=== PATIENT | female | born 1990 | race Caucasian/White ===

== ENCOUNTER 2019-06-25 12:07 | Emergency (ER) | payer SELFPAY ==
[2019-06-25 12:29] VITALS: BP 134/68; PULSE 76; RESP 17; TEMP 37; O2SAT 97; BMI 30.2
--- NOTE | 2019-06-25 12:43 | W.ED.GENADLT ---
HPI - General Adult General: Chief complaint: Syncope Stated complaint: hit head Time Seen by Provider: 06/25/19 12:37 History of Present Illness: HPI narrative: Patient complains of having episode after she peed today and stood up that she had a syncopal episode said she hit her head on the wall. Patient now states that her throat hurts that she is been sick for a few days had some throwing up and is been coughing a lot no vomiting the last 24 to 48 hours. Possibly has some chills no nausea or vomiting after fall today MD complaint: sore throat and cough Onset (ago): day(s) Location: head Radiation: non-radiation Severity: mild Associated symptoms: Reports headache(s); Deny chest pain, dyspnea, nausea, rash or vomiting Review of Systems Const: Reports: chills; Denies: fever or body aches Eyes: Denies: change in vision or blurry vision ENMT: Reports: throat pain; Denies: nasal congestion Card: Denies: chest pain or shortness of breath on exertion Resp: Reports: productive cough; Denies: shortness of breath or non-productive cough GI: Denies: abdominal pain, nausea or vomiting Musc: Denies: extremity pain Skin/Breast: Denies: rash Neuro: Reports: headache Psych: Denies: anxiety or depression Osbaldo/Lymph: Denies: easy bruising PFS ED PFSH: Medical History (Updated 06/25/19 @ 14:17 by BIRD Nicholson) Major depressive disorder, recurrent severe without psychotic features Post-traumatic stress disorder, chronic Social History (Updated 05/14/19 @ 10:46 by Nancie Abreu LPN) Smoking and tobacco status: current every day smoker cigarettes Years cigarettes smoked: 3 Physical Exam Const: COMMON NORMALS: no apparent distress, average body habitus and oriented x3 HENMT: COMMON NORMALS: normocephalic HEAD & SCALP: normal to inspection and normocephalic FACE & SINUS: normal facial exam THROAT: posterior oropharynx abnormal (Very red with some exudate) erythema and exudates Eye: COMMON NORMALS: conjunctivae normal GENERAL EYE: normal appearance of both eyes CONJUNCTIVA: Yes conjunctivae normal Neck/C-Spine: COMMON NORMALS: no JVD Chest: COMMONS NORMALS: inspection of chest normal Resp: COMMON NORMALS: normal respiratory effort and clear to auscultation bilaterally AUSCULTATION: clear to auscultation bilaterally Cardio: COMMON NORMALS: no JVD, regular rate and regular rhythm RATE: regular rate RHYTHM: regular rhythm GI: COMMON NORMALS: normal to inspection, nondistended, normoactive bowel sounds Extremity: COMMON NORMALS: normal to inspection and full ROM Neuro: COMMON NORMALS: oriented x3 and CN's II-XII intact bilaterally Course Vital Signs: Vital signs: Vital Signs Temperature 98.6 F 06/25/19 12:29 Pulse Rate 65 06/25/19 13:35 Respiratory Rate 17 06/25/19 12:29 Blood Pressure 107/60 06/25/19 13:35 Pulse Oximetry 97 06/25/19 12:29 MDM - General Adult MDM Narrative: Medical decision making narrative: Discussed case with Dr. Gipson Lab Data: Labs: Lab Results 06/25/19 06/25/19 06/25/19 Range/Units 12:51 12:51 13:01 WBC 4.3 (4.0-10.0) 10^3/ uL RBC 4.71 (4.1-5.3) 10^6/u L Hgb 14.5 (11.5-15.3) g/dL Hct 43.3 (37.0-47.0) % MCV 91.9 (81-99) fL MCH 30.8 (28.0-34.0) pg MCHC 33.5 (30.0-36.0) g/dL RDW 11.4 L (12.1-15.1) % Plt Count 173 (130-400) 10^3/c mm MPV 10.8 H (7.4-10.4) fL Neut % (Auto) 53.4 % Lymph % (Auto) 32.3 % [place] % (Auto) 13.7 % Eos % (Auto) 0.2 % Baso % (Auto) 0.2 % Neut # (Auto) 2.3 (1.8-7.7) 10^3/u L Lymph # (Auto) 1.4 (0.8-4.8) 10^3/u L [place] # (Auto) 0.6 (0.2-0.9) 10^3/u L Eos # (Auto) 0.0 (0.0-0.8) 10^3/u L Baso # (Auto) 0.0 (0.0-0.1) 10^3/u L Nucleated RBC % (a uto) 0 % Nucleated RBCs # 0.0 /100WBC Sodium 138 (136-145) mmol/L Potassium 4.1 (3.5-5.1) mmol/L Chloride 103 (98-107) mmol/L Carbon Dioxide 24 (22-29) mmol/L Anion Gap 15.1 (5-19) BUN 7 (6-20) mg/dL Creatinine 0.9 (0.5-0.9) mg/dL GFR Calculation 74.6 L (90-130) mL/min Glucose 97 (65-115) mg/dL Calcium 9.1 (8.5-10.5) mg/dL Total Bilirubin 0.2 (0.15-1.2) mg/dL AST 23 (0-32) U/L ALT 17 (0-33) U/L Alkaline Phosphata se 96 (35-105) IU/L Total Protein 7.5 (6.6-8.7) g/dL Albumin 4.1 (3.5-5.2) g/dL Globulin 3.4 (1.3-4.6) g/dL Urine Color Yellow (Yellow) Urine Appearance Clear (CLEAR) Urine pH 5 (5-7) Ur Specific Gravit y 1.010 (1.005-1.030) Urine Protein Neg (Negative) Urine Glucose (UA) Norm (Normal) Urine Ketones Negative (Negative) Urine Blood 3+ H (Negative) Urine Nitrate Negative (Negative) Urine Bilirubin Neg (NEGATIVE) Urine Urobilinogen Norm (Negative) mg/dL Ur Leukocyte Crissy ase Negative (Negative) Urine RBC 0-4 H (0-2) /hpf Urine WBC 0-4 H (0-5) /hpf Ur Squamous Epith Cells 5-10 H (0-5) Urine Bacteria 1+ H (NONE) Urine Mucus Trace Influenza Type A A g (Negative) POC Influenza B Ag (Negative) Group A Strep Rapi d (Negative) 06/25/19 06/25/19 Range/Units 13:32 13:42 WBC (4.0-10.0) 10^3/ uL RBC (4.1-5.3) 10^6/u L Hgb (11.5-15.3) g/dL Hct (37.0-47.0) % MCV (81-99) fL MCH (28.0-34.0) pg MCHC (30.0-36.0) g/dL RDW (12.1-15.1) % Plt Count (130-400) 10^3/c mm MPV (7.4-10.4) fL Neut % (Auto) % Lymph % (Auto) % [place] % (Auto) % Eos % (Auto) % Baso % (Auto) % Neut # (Auto) (1.8-7.7) 10^3/u L Lymph # (Auto) (0.8-4.8) 10^3/u L [place] # (Auto) (0.2-0.9) 10^3/u L Eos # (Auto) (0.0-0.8) 10^3/u L Baso # (Auto) (0.0-0.1) 10^3/u L Nucleated RBC % (a uto) % Nucleated RBCs # /100WBC Sodium (136-145) mmol/L Potassium (3.5-5.1) mmol/L Chloride (98-107) mmol/L Carbon Dioxide (22-29) mmol/L Anion Gap (5-19) BUN (6-20) mg/dL Creatinine (0.5-0.9) mg/dL GFR Calculation (90-130) mL/min Glucose (65-115) mg/dL Calcium (8.5-10.5) mg/dL Total Bilirubin (0.15-1.2) mg/dL AST (0-32) U/L ALT (0-33) U/L Alkaline Phosphata se (35-105) IU/L Total Protein (6.6-8.7) g/dL Albumin (3.5-5.2) g/dL Globulin (1.3-4.6) g/dL Urine Color (Yellow) Urine Appearance (CLEAR) Urine pH (5-7) Ur Specific Gravit y (1.005-1.030) Urine Protein (Negative) Urine Glucose (UA) (Normal) Urine Ketones (Negative) Urine Blood (Negative) Urine Nitrate (Negative) Urine Bilirubin (NEGATIVE) Urine Urobilinogen (Negative) mg/dL Ur Leukocyte Crissy ase (Negative) Urine RBC (0-2) /hpf Urine WBC (0-5) /hpf Ur Squamous Epith Cells (0-5) Urine Bacteria (NONE) Urine Mucus Influenza Type A A g Negative (Negative) POC Influenza B Ag Positive H (Negative) Group A Strep Rapi d Negative (Negative) EKG Data^: EKG 1: EKG interpretation date: 06/25/19 EKG interpretation time: 13:44 Interpretation: NSR, rate 67 bpm, QRS 374 Discharge Plan Discharge Patient Disposition: Home, Self-Care Clinical Impression: Dehydration, Influenza Condition: Stable Prescriptions: New Tamiflu 75 mg capsule 75 mg PO BID 5 Days Qty: 10 RF: 0 No Action fluoxetine [Prozac] 20 mg capsule 60 mg PO DAILY Qty: 90 RF: 1 aripiprazole [Abilify] 15 mg tablet 15 mg PO DAILY Qty: 30 RF: 1 prazosin [Minipress] 2 mg capsule 2 mg PO BEDTIME RF: 0 Referrals: Adrian Rosales MD [Primary Care Provider] - Discharge Diet: Advance as tolerated Discharge Activity: Increase activity as tolerated Patient Instructions: Dehydration (ED), Influenza (ED) Activity Restrictions/Additional Instructions: Follow-up with medical provider as directed. Take medications as prescribed. Return to the ER or your medical provider if condition worsens. Please read and understand discharge instructions. If any questions ask please. Coding Level of Care Code ED Donation Specialist for Erickg Fwd Exam Comprehensive
[2019-06-25 13:00] LABS: Basophils % 0.2 %; Eosinophils % 0.2 %; Hematocrit 43.3 % (37.0-47.0); Hemoglobin 14.5 g/dL (11.5-15.3); Lymphocytes # 1.4 10^3/uL (0.8-4.8); Lymphocytes % 32.3 %; Mean Corpuscular HGB Conc 33.5 g/dL (30.0-36.0); Mean Corpuscular Hemoglobin 30.8 pg (28.0-34.0); Mean Corpuscular Volume 91.9 fL (81-99); Mean Platelet Volume 10.8 fL (7.4-10.4); Monocytes # 0.6 10^3/uL (0.2-0.9); Monocytes % 13.7 %; Neutrophils # 2.3 10^3/uL (1.8-7.7); Neutrophils % 53.4 %; Nucleated Red Blood Cells % 0 %; Platelet Count 173 10^3/cmm (130-400); Positive M 1; Red Blood Count 4.71 10^6/uL (4.1-5.3); Red Cell Distribution Width 11.4 % (12.1-15.1); White Blood Count 4.3 10^3/uL (4.0-10.0)
[2019-06-25 13:11] LABS: Add Urine Microscopic? YES; Bilirubin Urine Neg (NEGATIVE); Blood Urine 3+ (Negative); Glucose Urine UA Norm (Normal); Ketones Urine Negative (Negative); Leukocyte Esterase Urine Negative (Negative); Nitrate Urine Negative (Negative); Protein Urine Neg (Negative); Urine Appearance Clear (CLEAR); Urine Color Yellow (Yellow); Urobilinogen Urine Norm (Negative); pH Urine 5 (5-7)
[2019-06-25 13:15] LABS: Alanine Aminotransferase 17 U/L (0-33); Albumin Level 4.1 g/dL (3.5-5.2); Alkaline Phosphatase 96 IU/L (35-105); Anion Gap 15.1 (5-19); Aspartate Amino Transferase 23 U/L (0-32); Blood Urea Nitrogen 7 mg/dL (6-20); Calcium 9.1 mg/dL (8.5-10.5); Carbon Dioxide 24 mmol/L (22-29); Chloride 103 mmol/L (98-107); Globulin 3.4 g/dL (1.3-4.6); Glomerular Filtration Rate 74.6 mL/min (90-130); Glucose 97 mg/dL (65-115); Potassium 4.1 mmol/L (3.5-5.1); Sodium 138 mmol/L (136-145); Total Bilirubin 0.2 mg/dL (0.15-1.2); Total Protein 7.5 g/dL (6.6-8.7)
--- NOTE | 2019-06-25 13:24 | ECG_ITS ---
Measurements Intervals [place] Rate: 67 P: 41 NV: 140 QRS: 64 QRSD: 82 T: 54 QT: 374 QTc: 395 SINUS RHYTHM Compared to ECG 02/21/2015 13:55:21 Sinus arrhythmia no longer present T-wave abnormality no longer present Electronically Signed On 06-25-2019 14:13:47 TORQUE TESTER by Paul Ortega M.D. [id number]
[2019-06-25 13:32] LABS: Slide Review Slide Review Perform
[2019-06-25 13:35] VITALS: BP 107/60; BP 108/65; BP 115/70; PULSE 65; PULSE 71; PULSE 92
[2019-06-25 13:40] LABS: Add Urine Culture? No; Bacteria Urine 1+; Mucus Urine TRACE; RBC Urine 0-4 /hpf (0-2); WBC Urine 0-4 /hpf (0-5)
[2019-06-25] MEDS: sodium chloride 0.9% 1,000 ML 999 ML IV (13:41)
[2019-06-25 13:56] LABS: Rapid Strep A Test Negative (Negative)
[2019-06-25 14:09] LABS: Influenza A by IFA Negative (Negative); Influenza B by IFA Positive (Negative)
[2019-06-25 14:23] VITALS: BP 118/64; PULSE 72; RESP 17; O2SAT 98
== END 2019-06-25 14:27 | disposition home or self-care (01) ==
PROVIDERS: Emergency Provider Nurse Practitioner Family; Family Provider Family Medicine; PCP Family Medicine
DX: J11.1 Influenza due to unidentified influenza virus with other respiratory manifestations (principal); E86.0 Dehydration; F17.210 Nicotine dependence, cigarettes, uncomplicated
CPT/HCPCS: 36415; 80053; 81001; 85025; 87081; 87804; 87880; 93005; 96360; 99283; A9270; J7030

== ENCOUNTER 2020-04-10 15:49 | Emergency (ER) | payer SELFPAY ==
[2020-04-10 15:55] VITALS: BP 113/77; PULSE 67; RESP 18; TEMP 36.4; O2SAT 98; BMI 30.1
--- NOTE | 2020-04-10 16:06 | XR_ITS ---
WS: [id number] PORTABLE CHEST HISTORY: CP COMPARISON: 01/22/2013 Lungs are clear and well expanded. No pleural effusion or pneumothorax. Cardiac size: Normal. Mediastinum/Aorta: Normal mediastinum. No osseous abnormality seen. XR/XR chest 1V portable [id number] IMPRESSION: Unremarkable portable chest.
--- NOTE | 2020-04-10 16:10 | W.ED.ANXIETY ---
Documented by User: BIRD Simpson 04/10/20 16:11 HPI - Anxiety General: Chief Complaint: Anxiety Stated Complaint: Chest Pain Time Seen by Provider: 04/10/20 16:01 History of Present Illness: HPI narrative: Patient said she started with chest pain after anxiety attack she smokes some THC and that did not relieve her anxiety pain still in her chest radiates up into her neck and she also said her oxygen level was low at 88% which was checked by her who is an EMT. Patient has has a history of anxiety and anxiety attacks medications all help her. MD complaint: anxiety and other Onset (ago): hour(s) Symptoms: chest pain Severity: mild Quality: constant Place: home History of similar episodes: Yes Provoking factors: none known Relieving factors: nothing Exacerbating factors: nothing Associated symptoms: Reports no associated symptoms and chest pain; Deny chills, fever(s), headache(s), nausea or vomiting Review of Systems Const: Denies: fever(s), chills or body aches Eyes: Denies: change in vision or blurry vision ENMT: Denies: throat pain or nasal congestion Card: Reports: chest pain; Denies: dyspnea on exertion Resp: Denies: dyspnea, productive cough or non-productive cough GI: Denies: abdominal pain, nausea or vomiting Musc: Denies: extremity pain Skin/Breast: Denies: rash Neuro: Denies: headache(s) Psych: Reports: anxiety; Denies: depression Osbaldo/Lymph: Denies: easy bruising PFSH ED PFSH: Medical History Major depressive disorder, recurrent severe without psychotic features Post-traumatic stress disorder, chronic Social History Smoking and tobacco status: current every day smoker cigarettes Years cigarettes smoked: 3 Physical Exam Const: COMMON NORMALS: no acute distress, average body habitus and patient oriented x3 HENMT: COMMON NORMALS: normocephalic HEAD & SCALP: normal to inspection and normocephalic FACE & SINUS: normal facial exam Eye: COMMON NORMALS: conjunctivae normal GENERAL EYE: appearance normal, both eyes and all related structures CONJUNCTIVA: Yes conjunctivae normal Neck/C-Spine: COMMON NORMALS: no JVD Chest: COMMONS NORMALS: normal inspection of the chest Resp: COMMON NORMALS: normal respiratory effort and clear to auscultation bilaterally AUSCULTATION: clear to auscultation bilaterally Cardio: COMMON NORMALS: no JVD, regular rate and regular rhythm RATE: regular rate RHYTHM: regular rhythm GI: COMMON NORMALS: Normal to inspection, nondistended, normoactive bowel sounds present Extremity: COMMON NORMALS: normal to inspection and full ROM Neuro: COMMON NORMALS: patient oriented x3 Course Vital Signs: Vital signs: Vital Signs Temperature 97.5 F L 04/10/20 15:55 Pulse Rate 74 04/10/20 20:06 Respiratory Rate 16 04/10/20 20:06 Blood Pressure 110/66 04/10/20 20:06 Pulse Oximetry 96 04/10/20 20:06 MDM - Anxiety EKG Data^: EKG 1: Interpretation: Chest X-Ray 04/10/20 16:06 IMPRESSION: Unremarkable portable chest. Other EKG comments: Chest X-Ray 04/10/20 16:06 IMPRESSION: Unremarkable portable chest. Lab Data: Labs: Lab Results 04/10/20 04/10/20 04/10/20 Range/Units 17:15 17:15 17:15 WBC 13.4 H (4.0-10.0) 10^3/ uL RBC 4.52 (4.1-5.3) 10^6/u L Hgb 14.4 (11.5-15.3) g/dL Hct 43.0 (37.0-47.0) % MCV 95.1 (81-99) fL MCH 31.9 (28.0-34.0) pg MCHC 33.5 (30.0-36.0) g/dL RDW 11.5 L (12.1-15.1) % Plt Count 226 (130-400) 10^3/c mm MPV 11.9 H (7.4-10.4) fL Neut % (Auto) 56.9 % Lymph % (Auto) 32.3 % [place] % (Auto) 7.7 % Eos % (Auto) 2.4 % Baso % (Auto) 0.3 % Neut # (Auto) 7.64 (1.8-7.7) 10^3/u L Lymph # (Auto) 4.3 (0.8-4.8) 10^3/u L [place] # (Auto) 1.0 H (0.2-0.9) 10^3/u L Eos # (Auto) 0.3 (0.0-0.8) 10^3/u L Baso # (Auto) 0.0 (0.0-0.1) 10^3/u L Nucleated RBC % (a uto) 0 % Nucleated RBCs # 0.0 /100WBC Sodium 141 (136-145) mmol/L Potassium 4.1 (3.5-5.1) mmol/L Chloride 105 (98-107) mmol/L Carbon Dioxide 25 (22-29) mmol/L Anion Gap 15.1 (5-19) BUN 8 (6-20) mg/dL Creatinine 0.7 (0.5-0.9) mg/dL GFR Calculation 98.9 (90-130) mL/min Glucose 89 (65-115) mg/dL Calculated Osmolal ity 290 (285-295) mOsm/k g Calcium 9.4 (8.5-10.5) mg/dL Troponin T Gen 5 n g/L 6 (0-10) ng/L Discharge Plan Discharge Patient Disposition: Home Clinical Impression: Acute anxiety Condition: Stable Prescriptions: No Action Aspir-81 81 mg Tablet,Delayed Release (Dr/Ec) 324 - 405 mg PO PRN RF: 0 ibuprofen 200 mg Tablet 800 mg PO PRN RF: 0 Discharge Orders: Discharge ED (Routine); Ordered 04/10/20 Ordered By: Juan Dominique Referrals: Adrian Rosales MD [Primary Care Provider] - Discharge Diet: Regular Discharge Activity: Resume usual activity Patient Instructions: Anxiety (ED) Activity Restrictions/Additional Instructions: Follow-up with medical provider as directed in 7 to 10 days for reevaluation. Return to the ER or your medical provider if condition worsens. Please read and understand discharge instructions. If any questions, please ask. Sign Out Sign Out Data: Patient Sign Out occurred on 04/10/20 at 17:02. Patient's care was discussed, and care was transferred from to ROBERT Luo. Coding Level of Care Code ED Blast Furnace Keeper Helper for Chg Fwd Exam Comprehensive Documented by User: ROBERT Luo 04/11/20 01:20 HPI - Anxiety General: Chief Complaint: Anxiety Stated Complaint: Chest Pain Time Seen by Provider: 04/10/20 16:01 [facility] ED PFSH: Medical History Major depressive disorder, recurrent severe without psychotic features Post-traumatic stress disorder, chronic Social History Smoking and tobacco status: current every day smoker cigarettes Years cigarettes smoked: 3 Course Vital Signs: Vital signs: Vital Signs Temperature 97.5 F L 04/10/20 15:55 Pulse Rate 74 04/10/20 20:06 Respiratory Rate 16 04/10/20 20:06 Blood Pressure 110/66 04/10/20 20:06 Pulse Oximetry 96 04/10/20 20:06 MDM - Anxiety MDM Narrative: Medical decision making narrative: Patient is a 29-year-old female comes to the ED with anxiety attack and chest pain. Patient says she has had episodes like this in the past. Patient was given Ativan and Toradol to help with symptoms and they improved. EKG showed no signs of ID and troponin negative. Chest x-ray showed no acute findings. After lab and image findings cardiac and lung causes of chest pain ruled out and likely due to anxiety. Patient was discharged with acute anxiety and told to follow-up with PCP in 7 to 10 days for reevaluation. Return to ED precautions given. Patient understood and agreed with plan. EKG Data^: EKG 1: Attestation: I personally reviewed and interpreted this EKG as follows: EKG interpretation date: 04/10/20 Interpretation: Chest X-Ray 04/10/20 16:06 IMPRESSION: Unremarkable portable chest. Ectopic atrial bradycardia, 57 bpm, no ST segment elevation or depression seen. Other EKG comments: Chest X-Ray 04/10/20 16:06 IMPRESSION: Unremarkable portable chest. Lab Data: Attestation: I reviewed the patient's lab results. Labs: Lab Results 04/10/20 04/10/20 04/10/20 Range/Units 17:15 17:15 17:15 WBC 13.4 H (4.0-10.0) 10^3/ uL RBC 4.52 (4.1-5.3) 10^6/u L Hgb 14.4 (11.5-15.3) g/dL Hct 43.0 (37.0-47.0) % MCV 95.1 (81-99) fL MCH 31.9 (28.0-34.0) pg MCHC 33.5 (30.0-36.0) g/dL RDW 11.5 L (12.1-15.1) % Plt Count 226 (130-400) 10^3/c mm MPV 11.9 H (7.4-10.4) fL Neut % (Auto) 56.9 % Lymph % (Auto) 32.3 % [place] % (Auto) 7.7 % Eos % (Auto) 2.4 % Baso % (Auto) 0.3 % Neut # (Auto) 7.64 (1.8-7.7) 10^3/u L Lymph # (Auto) 4.3 (0.8-4.8) 10^3/u L [place] # (Auto) 1.0 H (0.2-0.9) 10^3/u L Eos # (Auto) 0.3 (0.0-0.8) 10^3/u L Baso # (Auto) 0.0 (0.0-0.1) 10^3/u L Nucleated RBC % (a uto) 0 % Nucleated RBCs # 0.0 /100WBC Sodium 141 (136-145) mmol/L Potassium 4.1 (3.5-5.1) mmol/L Chloride 105 (98-107) mmol/L Carbon Dioxide 25 (22-29) mmol/L Anion Gap 15.1 (5-19) BUN 8 (6-20) mg/dL Creatinine 0.7 (0.5-0.9) mg/dL GFR Calculation 98.9 (90-130) mL/min Glucose 89 (65-115) mg/dL Calculated Osmolal ity 290 (285-295) mOsm/k g Calcium 9.4 (8.5-10.5) mg/dL Troponin T Gen 5 n g/L 6 (0-10) ng/L Discharge Plan Discharge Patient Disposition: Home Clinical Impression: Acute anxiety Condition: Stable Prescriptions: No Action Aspir-81 81 mg Tablet,Delayed Release (Dr/Ec) 324 - 405 mg PO PRN RF: 0 ibuprofen 200 mg Tablet 800 mg PO PRN RF: 0 Discharge Orders: Discharge ED (Routine); Ordered 04/10/20 Ordered By: Juan Dominique Referrals: Adrian Rosales MD [Primary Care Provider] - Discharge Diet: Regular Discharge Activity: Resume usual activity Patient Instructions: Anxiety (ED) Activity Restrictions/Additional Instructions: Follow-up with medical provider as directed in 7 to 10 days for reevaluation. Return to the ER or your medical provider if condition worsens. Please read and understand discharge instructions. If any questions, please ask. Sign Out Sign Out Data: Patient Sign Out occurred on 04/10/20 at 17:02. Patient's care was discussed, and care was transferred from to ROBERT Luo. Coding Level of Care Code ED Blast Furnace Keeper Helper for Juliano Fwd Exam Comprehensive
--- NOTE | 2020-04-10 16:31 | ECG_ITS ---
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 Measurements Intervals [place] Rate: 57 P: 141 VA: 148 QRS: 85 QRSD: 80 T: 126 QT: 401 QTc: 392 Interpretive Statements ECTOPIC ATRIAL BRADYCARDIA Nonspecific T wave abnormality Compared to ECG 06/25/2019 13:44:18 Bradycardia, nonsinus now present Sinus rhythm no longer present Electronically Signed On 04-11-2020 17:12:40 BOBBIN FIXER by Tana Wilson M.D. [id number] f
[2020-04-10 17:24] LABS: Basophils % 0.3 %; Eosinophils # 0.3 10^3/uL (0.0-0.8); Eosinophils % 2.4 %; Hemoglobin 14.4 g/dL (11.5-15.3); Lymphocytes # 4.3 10^3/uL (0.8-4.8); Lymphocytes % 32.3 %; Mean Corpuscular HGB Conc 33.5 g/dL (30.0-36.0); Mean Corpuscular Hemoglobin 31.9 pg (28.0-34.0); Mean Corpuscular Volume 95.1 fL (81-99); Mean Platelet Volume 11.9 fL (7.4-10.4); Monocytes % 7.7 %; Neutrophils # 7.64 10^3/uL (1.8-7.7); Neutrophils % 56.9 %; Nucleated Red Blood Cells % 0 %; Platelet Count 226 10^3/cmm (130-400); Red Blood Count 4.52 10^6/uL (4.1-5.3); Red Cell Distribution Width 11.5 % (12.1-15.1); White Blood Count 13.4 10^3/uL (4.0-10.0)
[2020-04-10 17:46] LABS: Anion Gap 15.1 (5-19); Blood Urea Nitrogen 8 mg/dL (6-20); Calcium 9.4 mg/dL (8.5-10.5); Carbon Dioxide 25 mmol/L (22-29); Chloride 105 mmol/L (98-107); Glomerular Filtration Rate 98.9 mL/min (90-130); Glucose 89 mg/dL (65-115); Osmolality Calculated 290 mOsm/kg (285-295); Potassium 4.1 mmol/L (3.5-5.1); Sodium 141 mmol/L (136-145)
[2020-04-10 17:48] LABS: Troponin T (5th) Once 6 ng/L (0-10)
--- NOTE | 2020-04-10 19:16 | PC.NURSE ---
report received from TERRI TARIQ and care transferred to MARCIANO Joiner
[2020-04-10] MEDS: ketorolac 30 mg/mL INJ IVP (19:21)
[2020-04-10] MEDS: LORazepam 0.5 mg Tablet PO (19:25)
[2020-04-10 20:06] VITALS: BP 110/66; PULSE 74; RESP 16; O2SAT 96
== END 2020-04-10 21:36 | disposition home or self-care (01) ==
PROVIDERS: Nurse Practitioner Family; Emergency Provider Physician Assistant; PCP Family Medicine
DX: F41.9 Anxiety disorder, unspecified (principal); Z79.82 Long term (current) use of aspirin; F17.210 Nicotine dependence, cigarettes, uncomplicated
CPT/HCPCS: 12345; 36415; 71045; 80048; 84484; 85025; 93005; 96374; 99282; 99283; J1885

== ENCOUNTER → 2022-06-27 09:36 | Outpatient (BNVA) | payer BC, MEDICAID, SELFPAY | PROVIDERS: Visit Provider Family Medicine | DX: R07.9 Chest pain, unspecified (principal); R06.02 Shortness of breath | CPT/HCPCS: 71046; 80053; 84443; 85025 ==

== ENCOUNTER → 2022-08-12 13:04 | Outpatient (BNVA) | payer BC, MEDICAID, SELFPAY | PROVIDERS: PCP Family Medicine; Visit Provider Obstetrics & Gynecology | DX: N39.0 Urinary tract infection, site not specified (principal) | CPT/HCPCS: 81000; 87086 ==

== ENCOUNTER 2022-10-28 12:32 | Oncology outpatient (recurring) (ONCR) | payer BC, MEDICAID, SELFPAY | END 2022-11-01 23:59 | disposition home or self-care (01) | PROVIDERS: PCP Family Medicine; Visit Provider Internal Medicine Hematology & Oncology | DX: Z53.9 Procedure and treatment not carried out, unspecified reason (principal) ==

== ENCOUNTER 2023-01-22 08:57 | Oncology outpatient (recurring) (ONCR) | payer BC, MEDICAID, SELFPAY | END 2023-02-01 23:59 | disposition home or self-care (01) | PROVIDERS: PCP Family Medicine; Visit Provider Internal Medicine Medical Oncology | DX: Z13.79 Encounter for other screening for genetic and chromosomal anomalies (principal) | CPT/HCPCS: 36415 ==

== ENCOUNTER → 2023-06-11 10:44 | Outpatient (BNVA) | payer BC, SELFPAY | PROVIDERS: PCP Family Medicine; Visit Provider Nurse Practitioner | DX: Z79.899 Other long term (current) drug therapy (principal); F31.12 Bipolar disorder, current episode manic without psychotic features, moderate; F33.2 Major depressive disorder, recurrent severe without psychotic features; F43.12 Post-traumatic stress disorder, chronic; F41.9 Anxiety disorder, unspecified; F41.1 Generalized anxiety disorder; F12.90 Cannabis use, unspecified, uncomplicated; F17.200 Nicotine dependence, unspecified, uncomplicated | CPT/HCPCS: 80053; 80061; 83036; 84443 ==

== ENCOUNTER 2023-07-09 13:28 | Oncology outpatient (recurring) (ONCR) | payer BC, MEDICAID, SELFPAY ==
[2023-07-09 14:48] LABS: Basophils % 0.4 %; Eosinophils # 0.2 10^3/uL (0.0-0.8); Eosinophils % 2.1 %; Hematocrit 41.8 % (36-47); Lymphocytes # 3.9 10^3/uL (0.8-4.8); Lymphocytes % 37.6 %; Mean Corpuscular HGB Conc 34.4 g/dL (30-55); Mean Corpuscular Hemoglobin 32.6 pg (27-33); Mean Corpuscular Volume 94.6 fl (85-98); Mean Platelet Volume 11.3 fL (7.4-10.4); Monocytes # 0.7 10^3/uL (0.2-0.9); Monocytes % 6.4 %; Neutrophils # 5.54 10^3/uL (1.8-7.7); Neutrophils % 53.2 %; Nucleated Red Blood Cells % 0 %; Platelet Count 241 10^3/cmm (157-399); Red Blood Count 4.42 10^6/uL (3.85-5.65); Red Cell Distribution Width 11.6 % (12.1-15.1); White Blood Count 10.41 10^3/uL (3.29-11.43)
[2023-07-09 15:09] LABS: Alanine Aminotransferase 13 U/L (0-33); Albumin Level 3.8 g/dL (3.5-5.2); Alkaline Phosphatase 86 U/L (35-105); Aspartate Amino Transferase 16 U/L (0-32); Blood Urea Nitrogen 9 mg/dL (6-20); Calcium 8.4 mg/dL (8.5-10.5); Carbon Dioxide 26 mmol/L (22-29); Chloride 104 mmol/L (98-107); Creatinine Clr Calc Pharmacy 102.1575; Globulin 2.9 g/dL (1.3-4.6); Glomerular Filtration Rate 83.1 mL/min (90-130); Glucose 92 mg/dL (65-115); Lactate Dehydrogenase 180 U/L (135-214); Osmolality Calculated 286 mOsm/kg (285-295); Sodium 139 mmol/L (136-145); Total Bilirubin 0.2 mg/dL (0.15-1.2); Total Protein 6.7 g/dL (6.6-8.7)
== END 2023-08-03 23:59 | disposition home or self-care (01) ==
PROVIDERS: Nurse Practitioner Family; PCP Family Medicine; Visit Provider Internal Medicine Medical Oncology
DX: Z15.89 Genetic susceptibility to other disease (principal)
CPT/HCPCS: 36415; 80053; 83615; 85025

== ENCOUNTER → 2023-10-03 10:55 | Outpatient (BNVA) | payer BC, MEDICAID, SELFPAY | PROVIDERS: PCP Family Medicine; Visit Provider Family Medicine | DX: R30.0 Dysuria (principal); N81.4 Uterovaginal prolapse, unspecified; N39.41 Urge incontinence; N39.0 Urinary tract infection, site not specified; A49.9 Bacterial infection, unspecified; B37.31 Acute candidiasis of vulva and vagina; Z15.89 Genetic susceptibility to other disease; F41.1 Generalized anxiety disorder; F33.2 Major depressive disorder, recurrent severe without psychotic features; F17.201 Nicotine dependence, unspecified, in remission; E66.9 Obesity, unspecified; I95.9 Hypotension, unspecified; R42 Dizziness and giddiness | CPT/HCPCS: 81000 ==

== ENCOUNTER 2023-10-05 22:31 | Emergency (ER) | payer BC, MEDICAID, SELFPAY ==
--- NOTE | 2023-10-05 22:33 | ECG_ITS ---
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 Measurements Intervals [place] Rate: 55 P: 77 ND: 152 QRS: 87 QRSD: 61 T: 88 QT: 387 QTc: 370 Interpretive Statements SINUS BRADYCARDIA MINIMAL ST DEPRESSION [0.025+ mV ST DEPRESSION] Compared to ECG 04/10/2020 19:52:14 ST (T wave) deviation now present Bradycardia, nonsinus no longer present T-wave abnormality no longer present Electronically Signed On 10-06-2023 14:29:58 CDT by Paul Ortega M.D. [id number] f
[2023-10-05 22:38] VITALS: BP 110/71; PULSE 63; RESP 17; TEMP 36.6; O2SAT 98; BMI 31.5
--- NOTE | 2023-10-05 22:47 | XRR_ITS ---
PROCEDURE INFORMATION: Exam: XR Chest Exam date and time: 10/05/2023 10:52 PM Age: 33 years old Clinical indication: Angina pectoris; Patient HX: Chest pain TECHNIQUE: Imaging protocol: Radiologic exam of the chest. Views: 1 view. COMPARISON: CR XR chest 2V* [id number] 06/27/2022 9:42 AM FINDINGS: Lungs: No consolidation. Pleural spaces: Unremarkable. No pleural effusion. No pneumothorax. Heart/Mediastinum: No cardiomegaly. Bones/joints: No acute findings. XR/XR chest 1V portable [id number] IMPRESSION: No acute findings.
--- NOTE | 2023-10-05 23:06 | ED_ITS ---
Documented by User: BIRD Durbin 10/12/23 14:01 HPI - Chest Pain 2 General: Chief Complaint: Chest Pain Stated Complaint: chest pain left arm pain sob Time Seen by Provider: 10/05/23 22:47 History of Present Illness: Patient comes in today with persistent chest pain for 1 week. Patient states he has a history of panic attacks which causes her chest discomfort. Patient came in tonight due to concerns of persistent discomfort and wanting to feel relief. Patient takes no routine medications. Patient had taken aspirin today. Patient takes daily getting a vitamins. Patient is on antibiotic for UTI at this time. Patient stopped using tobacco 7 months ago. Patient does occasionally use marijuana rarely uses alcohol and does not use methamphetamines. Review of Systems 2 General: Reports: 10 or more systems reviewed and unremarkable except in HPI and below Card: Reports: chest pain Psych: Reports: anxiety PFSH ED 2 PFSH: Medical History Nicotine use disorder Cannabis use disorder On combination antipsychotic drug therapy [place] use Depression Anxiety Asthma Monoallelic mutation of TERC gene Psychiatric care Lumbar disc disease with radiculopathy Bipolar 1 disorder with moderate shimon Major depressive disorder, recurrent severe without psychotic features Post-traumatic stress disorder, chronic Surgical History History of tubal ligation History of rectal sphincterotomy Family History Father Cancer mylodisplastic syndrome--terc gene mutation Sister Cancer lung cancer due to terc gene mutation Other Anesthesia complication Diabetes Hyperlipidemia Hypertension Psychiatric illness Stroke Denies family history of Colon cancer Ovarian cancer CAD (coronary artery disease) Clotting disorder Dementia Chronic kidney disease (CKD) Breast cancer Bleeding disorder Lung disease Uterine cancer Thyroid disease Social History Smoking and tobacco/nicotine status: current every day tobacco/nicotine user e- cigarettes E-Cigarette Details: vaporizer device E-cig/vape details: nicotine use couple of years Quit status (tobacco/nicotine): has quit using Year quit tobacco: 2022 Former quit date comment: tobacco use 15 years Alcohol intake: current Alcohol intake frequency: holidays/special occasions only Substance/Drug Use: current Substance/Drug use frequency: daily Other substance/drug use details: Medical Marijuana card Lives independently: Yes Marital status: Number of children: 4 Current occupation: [employer] Special kadeem needs: No Agree to transfusion: Yes Physical Exam 2 Const: COMMON NORMALS: alert HENMT: COMMON NORMALS: normocephalic HEAD & SCALP: normocephalic Neck/C-Spine: COMMON NORMALS: full ROM Chest: COMMONS NORMALS: normal palpation of entire chest wall Resp: COMMON NORMALS: normal respiratory effort and clear to auscultation bilaterally AUSCULTATION: clear to auscultation bilaterally Cardio: COMMON NORMALS: regular rate and regular rhythm RATE: regular rate RHYTHM: regular rhythm GI: COMMON NORMALS: Soft to palpation and non-tender PALPATION: Yes Soft to palpation Back/Pelvis: COMMON NORMALS: thoracic and lumbar spine normal to inspection Extremity: COMMON NORMALS: full ROM Neuro: SENSORIUM/ORIENTATION: Yes alert Psych: COMMON NORMALS: cooperative Skin: COMMON NORMALS: turgor normal GENERAL SKIN EXAM: turgor normal Course 2 Vital Signs: Vital signs: Vital Signs Temperature 97.9 F 10/05/23 22:38 Pulse Rate 57 L 10/06/23 00:00 Respiratory Rate 16 10/06/23 02:11 Blood Pressure 134/65 10/06/23 00:00 Pulse Oximetry 98 10/06/23 02:11 Oxygen Delivery Me thod Room Air 10/06/23 00:00 MDM - Chest Pain Medical Decision Making Patient comes in today for chest pain and concerns of a anxiety attack. On exam respirations are even lungs are clear to auscultation. Skin is warm and dry. Vital signs are normal. Differential diagnosis includes panic disorder, generalized anxiety disorder, unlikely ACS. 0026, patient was given 1 mg of Ativan but reports no improvement in her chest pain. Patient is concerned that she will continue to have pain in her chest and would like it to be gone before she is discharged. I discussed this patient with Dr. Madsen who is going to assume care due to my leave of shift. We have decided to try 20 mg of Zydis to see if that would help with her pain and her distress regarding her anxiety. Patient does endorse that she has bipolar disorder along with her anxiety. This may be beneficial to help control the symptoms that she is having at this time. Patient was agreeable to plan. Lab Data 10/05/23 23:09 10/05/23 23:09 Radiology Impressions Chest X-Ray 10/05/23 22:47 IMPRESSION: No acute findings. Laboratory Results WBC 10.77 10^3/uL (3.29-11.43) 10/05/23 23:09 RBC 4.73 10^6/uL (3.85-5.65) 10/05/23 23:09 Hgb 15.20 g/dL (11.27-16.99) 10/05/23 23:09 Hct 44.1 % (36-47) 10/05/23 23:09 MCV 93.2 fl (85-98) 10/05/23 23:09 MCH 32.1 pg (27-33) 10/05/23 23:09 MCHC 34.5 g/dL (30-55) 10/05/23 23:09 RDW 11.6 % (12.1-15.1) L 10/05/23 23:09 Plt Count 246 10^3/cmm (157-399) 10/05/23 23:09 MPV 12.1 fL (7.4-10.4) H 10/05/23 23:09 Neut % (Auto) 50.2 % 10/05/23 23:09 Lymph % (Auto) 39.1 % 10/05/23 23:09 Kings % (Auto) 8.3 % 10/05/23 23:09 Eos % (Auto) 1.7 % 10/05/23 23:09 Baso % (Auto) 0.3 % 10/05/23 23:09 Neut # (Auto) 5.42 10^3/uL (1.8-7.7) 10/05/23 23:09 Lymph # (Auto) 4.2 10^3/uL (0.8-4.8) 10/05/23 23:09 Kings # (Auto) 0.9 10^3/uL (0.2-0.9) 10/05/23 23:09 Eos # (Auto) 0.2 10^3/uL (0.0-0.8) 10/05/23 23:09 Baso # (Auto) 0.0 10^3/uL (0.0-0.1) 10/05/23 23:09 Nucleated RBC % (auto) 0 % 10/05/23 23:09 Nucleated RBCs # 0.0 /100WBC 10/05/23 23:09 Sodium 140 mmol/L (136-145) 10/05/23 23:09 Potassium 3.8 mmol/L (3.5-5.1) 10/05/23 23:09 Chloride 105 mmol/L (98-107) 10/05/23 23:09 Carbon Dioxide 22 mmol/L (22-29) 10/05/23 23:09 Anion Gap 16.8 (5-19) 10/05/23 23:09 BUN 8 mg/dL (6-20) 10/05/23 23:09 Creatinine 0.8 mg/dL (0.5-0.9) 10/05/23 23:09 GFR Calculation 82.6 mL/min (90-130) L 10/05/23 23:09 Glucose 92 mg/dL (65-115) 10/05/23 23:09 Calculated Osmolality 288 mOsm/kg (285-295) 10/05/23 23:09 Calcium 9.2 mg/dL (8.5-10.5) 10/05/23 23:09 Total Bilirubin 0.2 mg/dL (0.15-1.2) 10/05/23 23:09 AST 16 U/L (0-32) 10/05/23 23:09 ALT 15 U/L (0-33) 10/05/23 23:09 Alkaline Phosphatase 111 U/L (35-105) H 10/05/23 23:09 Troponin T Baseline < 6 ng/L (0-10) 10/05/23 23:09 NT-Pro-B Natriuret Pep 92 pg/mL (0-125) 10/05/23 23:09 Total Protein 7.3 g/dL (6.6-8.7) 10/05/23 23:09 Albumin 3.9 g/dL (3.5-5.2) 10/05/23 23:09 Globulin 3.4 g/dL (1.3-4.6) 10/05/23 23:09 HCG, Qual Negative (Negative) 10/05/23 23:09 Discharge Plan Discharge Patient Disposition: Home Clinical Impression: Bipolar 1 disorder with moderate shimon Chest pain Qualifiers: Chest pain type: unspecified Qualified Code(s): R07.9 - Chest pain, unspecified Condition: Stable Prescriptions: No Action fluconazole 150 mg tablet 150 mg PO Q3D 0 Days Qty: 2 0RF nitrofurantoin monohyd/m-cryst [Macrobid] 100 mg capsule 100 mg PO Q12H 5 Days Qty: 10 0RF Rx Instructions: must administer with a meal/food cholecalciferol (vitamin D3) 10 mcg (400 unit) capsule 10 mcg PO DAILY melatonin 10 mg capsule 10 mg PO .nighttime ascorbic acid (vitamin C) 500 mg capsule PO DAILY pyridoxine (vitamin B6) 10 mg tablet 10 mg PO DAILY escitalopram oxalate [Lexapro] 10 mg tablet 10 mg PO DAILY Qty: 30 1RF buspirone 30 mg tablet 30 mg PO BID Qty: 60 1RF aripiprazole [Abilify] 30 mg tablet 30 mg PO DAILY Qty: 30 1RF Discharge Orders: Discharge ED (Routine); Ordered 10/06/23 Ordered By: Jd Madsen Referrals: Alirio Crowe MD [Primary Care Provider] - Discharge Diet: Usual diet Discharge Activity: Increase activity as tolerated Patient Instructions: Chest Pain (ED) Activity Restrictions/Additional Instructions: Follow-up with primary care or behavioral health counseling for further treatment. Coding Level of Care Code ED [employer]er for [employer] Documented by User: Jd Madsen, 10/06/23 03:18 HPI - Chest Pain 2 General: Chief Complaint: Chest Pain Stated Complaint: chest pain left arm pain sob Time Seen by Provider: 10/05/23 22:47 PFSH ED 2 PFSH: Medical History Nicotine use disorder Cannabis use disorder On combination antipsychotic drug therapy [place] use Depression Anxiety Asthma Monoallelic mutation of TERC gene Psychiatric care Lumbar disc disease with radiculopathy Bipolar 1 disorder with moderate shimon Major depressive disorder, recurrent severe without psychotic features Post-traumatic stress disorder, chronic Surgical History History of tubal ligation History of rectal sphincterotomy Family History Father Cancer mylodisplastic syndrome--terc gene mutation Sister Cancer lung cancer due to terc gene mutation Other Anesthesia complication Diabetes Hyperlipidemia Hypertension Psychiatric illness Stroke Denies family history of Colon cancer Ovarian cancer CAD (coronary artery disease) Clotting disorder Dementia Chronic kidney disease (CKD) Breast cancer Bleeding disorder Lung disease Uterine cancer Thyroid disease Social History Smoking and tobacco/nicotine status: current every day tobacco/nicotine user e- cigarettes E-Cigarette Details: vaporizer device E-cig/vape details: nicotine use couple of years Quit status (tobacco/nicotine): has quit using Year quit tobacco: 2022 Former quit date comment: tobacco use 15 years Alcohol intake: current Alcohol intake frequency: holidays/special occasions only Substance/Drug Use: current Substance/Drug use frequency: daily Other substance/drug use details: Medical Marijuana card Lives independently: Yes Marital status: Number of children: 4 Current occupation: [employer] needs: No Agree to transfusion: Yes Course 2 Vital Signs: Vital signs: Vital Signs Temperature 97.9 F 10/05/23 22:38 Pulse Rate 57 L 10/06/23 00:00 Respiratory Rate 16 10/06/23 02:11 Blood Pressure 134/65 10/06/23 00:00 Pulse Oximetry 98 10/06/23 02:11 Oxygen Delivery Me thod Room Air 10/06/23 00:00 MDM - Chest Pain Medical Decision Making Patient comes in today for chest pain and concerns of a anxiety attack. On exam respirations are even lungs are clear to auscultation. Skin is warm and dry. Vital signs are normal. Differential diagnosis includes panic disorder, generalized anxiety disorder, unlikely ACS. 0026, patient was given 1 mg of Ativan but reports no improvement in her chest pain. Patient is concerned that she will continue to have pain in her chest and would like it to be gone before she is discharged. I discussed this patient with Dr. Madsen who is going to assume care due to my leave of shift. We have decided to try 20 mg of Zydis to see if that would help with her pain and her distress regarding her anxiety. Patient does endorse that she has bipolar disorder along with her anxiety. This may be beneficial to help control the symptoms that she is having at this time. Patient was agreeable to plan. Took this case over at shift change. Troponin is nondetectable. She is clearly anxious and in pain. She is asking for pain medication which was given to her. She will be discharged to outpatient follow-up as described above. She will at home to return for any worsening symptoms Lab Data 10/05/23 23:09 10/05/23 23:09 Radiology Impressions Chest X-Ray 10/05/23 22:47 IMPRESSION: No acute findings. Laboratory Results WBC 10.77 10^3/uL (3.29-11.43) 10/05/23 23:09 RBC 4.73 10^6/uL (3.85-5.65) 10/05/23 23:09 Hgb 15.20 g/dL (11.27-16.99) 10/05/23 23:09 Hct 44.1 % (36-47) 10/05/23 23:09 MCV 93.2 fl (85-98) 10/05/23 23:09 MCH 32.1 pg (27-33) 10/05/23 23:09 MCHC 34.5 g/dL (30-55) 10/05/23 23:09 RDW 11.6 % (12.1-15.1) L 10/05/23 23:09 Plt Count 246 10^3/cmm (157-399) 10/05/23 23:09 MPV 12.1 fL (7.4-10.4) H 10/05/23 23:09 Neut % (Auto) 50.2 % 10/05/23 23:09 Lymph % (Auto) 39.1 % 10/05/23 23:09 Kings % (Auto) 8.3 % 10/05/23 23:09 Eos % (Auto) 1.7 % 10/05/23 23:09 Baso % (Auto) 0.3 % 10/05/23 23:09 Neut # (Auto) 5.42 10^3/uL (1.8-7.7) 10/05/23 23:09 Lymph # (Auto) 4.2 10^3/uL (0.8-4.8) 10/05/23 23:09 Kings # (Auto) 0.9 10^3/uL (0.2-0.9) 10/05/23 23:09 Eos # (Auto) 0.2 10^3/uL (0.0-0.8) 10/05/23 23:09 Baso # (Auto) 0.0 10^3/uL (0.0-0.1) 10/05/23 23:09 Nucleated RBC % (auto) 0 % 10/05/23 23:09 Nucleated RBCs # 0.0 /100WBC 10/05/23 23:09 Sodium 140 mmol/L (136-145) 10/05/23 23:09 Potassium 3.8 mmol/L (3.5-5.1) 10/05/23 23:09 Chloride 105 mmol/L (98-107) 10/05/23 23:09 Carbon Dioxide 22 mmol/L (22-29) 10/05/23 23:09 Anion Gap 16.8 (5-19) 10/05/23 23:09 BUN 8 mg/dL (6-20) 10/05/23 23:09 Creatinine 0.8 mg/dL (0.5-0.9) 10/05/23 23:09 GFR Calculation 82.6 mL/min (90-130) L 10/05/23 23:09 Glucose 92 mg/dL (65-115) 10/05/23 23:09 Calculated Osmolality 288 mOsm/kg (285-295) 10/05/23 23:09 Calcium 9.2 mg/dL (8.5-10.5) 10/05/23 23:09 Total Bilirubin 0.2 mg/dL (0.15-1.2) 10/05/23 23:09 AST 16 U/L (0-32) 10/05/23 23:09 ALT 15 U/L (0-33) 10/05/23 23:09 Alkaline Phosphatase 111 U/L (35-105) H 10/05/23 23:09 Troponin T Baseline < 6 ng/L (0-10) 10/05/23 23:09 NT-Pro-B Natriuret Pep 92 pg/mL (0-125) 10/05/23 23:09 Total Protein 7.3 g/dL (6.6-8.7) 10/05/23 23:09 Albumin 3.9 g/dL (3.5-5.2) 10/05/23 23:09 Globulin 3.4 g/dL (1.3-4.6) 10/05/23 23:09 HCG, Qual Negative (Negative) 10/05/23 23:09 All radiology interpretation(s) finalized by discharge Discharge Plan Discharge Patient Disposition: Home Clinical Impression: Bipolar 1 disorder with moderate shimon Chest pain Qualifiers: Chest pain type: unspecified Qualified Code(s): R07.9 - Chest pain, unspecified Condition: Stable Prescriptions: No Action fluconazole 150 mg tablet 150 mg PO Q3D 0 Days Qty: 2 0RF nitrofurantoin monohyd/m-cryst [Macrobid] 100 mg capsule 100 mg PO Q12H 5 Days Qty: 10 0RF Rx Instructions: must administer with a meal/food cholecalciferol (vitamin D3) 10 mcg (400 unit) capsule 10 mcg PO DAILY melatonin 10 mg capsule 10 mg PO .nighttime ascorbic acid (vitamin C) 500 mg capsule PO DAILY pyridoxine (vitamin B6) 10 mg tablet 10 mg PO DAILY escitalopram oxalate [Lexapro] 10 mg tablet 10 mg PO DAILY Qty: 30 1RF buspirone 30 mg tablet 30 mg PO BID Qty: 60 1RF aripiprazole [Abilify] 30 mg tablet 30 mg PO DAILY Qty: 30 1RF Discharge Orders: Discharge ED (Routine); Ordered 10/06/23 Ordered By: Jd Madsen Referrals: Alirio Crowe MD [Primary Care Provider] - Discharge Diet: Usual diet Discharge Activity: Increase activity as tolerated Patient Instructions: Chest Pain (ED) Activity Restrictions/Additional Instructions: Follow-up with primary care or behavioral health counseling for further treatment. Coding Level of Care Code ED [employer]er for Jul[facility]
[2023-10-05 23:12] VITALS: BP 120/68; PULSE 53; RESP 12; O2SAT 98
[2023-10-05] MEDS: LORazepam 1 mg Tablet PO (23:20)
[2023-10-05 23:27] LABS: Basophils % 0.3 %; Eosinophils # 0.2 10^3/uL (0.0-0.8); Eosinophils % 1.7 %; Hematocrit 44.1 % (36-47); Lymphocytes # 4.2 10^3/uL (0.8-4.8); Lymphocytes % 39.1 %; Mean Corpuscular HGB Conc 34.5 g/dL (30-55); Mean Corpuscular Hemoglobin 32.1 pg (27-33); Mean Corpuscular Volume 93.2 fl (85-98); Mean Platelet Volume 12.1 fL (7.4-10.4); Monocytes # 0.9 10^3/uL (0.2-0.9); Monocytes % 8.3 %; Neutrophils # 5.42 10^3/uL (1.8-7.7); Neutrophils % 50.2 %; Nucleated Red Blood Cells % 0 %; Platelet Count 246 10^3/cmm (157-399); Red Blood Count 4.73 10^6/uL (3.85-5.65); Red Cell Distribution Width 11.6 % (12.1-15.1); White Blood Count 10.77 10^3/uL (3.29-11.43)
[2023-10-05 23:30] VITALS: PULSE 53; RESP 13; O2SAT 95
[2023-10-05 23:40] LABS: HCG, Serum Qual Negative (Negative)
[2023-10-05 23:50] LABS: Troponin(5th) Baseline < 6 ng/L (0-10)
[2023-10-05 23:58] LABS: Alanine Aminotransferase 15 U/L (0-33); Albumin Level 3.9 g/dL (3.5-5.2); Alkaline Phosphatase 111 U/L (35-105); Anion Gap 16.8 (5-19); Aspartate Amino Transferase 16 U/L (0-32); Blood Urea Nitrogen 8 mg/dL (6-20); Calcium 9.2 mg/dL (8.5-10.5); Carbon Dioxide 22 mmol/L (22-29); Chloride 105 mmol/L (98-107); Creatinine Clr Calc Pharmacy 100.6381; Globulin 3.4 g/dL (1.3-4.6); Glomerular Filtration Rate 82.6 mL/min (90-130); Glucose 92 mg/dL (65-115); NT Pro B Type Natriuretic Pept 92 pg/mL (0-125); Osmolality Calculated 288 mOsm/kg (285-295); Potassium 3.8 mmol/L (3.5-5.1); Sodium 140 mmol/L (136-145); Total Bilirubin 0.2 mg/dL (0.15-1.2); Total Protein 7.3 g/dL (6.6-8.7)
[2023-10-06] VITALS: BP 134/65; PULSE 57; RESP 16; O2SAT 99
[2023-10-06] MEDS: OLANZapine 10 mg ODT 20 MG PO (01:01)
[2023-10-06 02:10] VITALS: RESP 16; O2SAT 98
[2023-10-06] MEDS: oxyCODONE-APAP 5-325 mg Tablet 1 TAB PO ×2 (02:10→02:11)
[2023-10-06 02:11] VITALS: RESP 16; O2SAT 98
[2023-10-06] MEDS: ketorolac 30 mg/mL INJ IM (02:11)
== END 2023-10-06 02:21 | disposition home or self-care (01) ==
PROVIDERS: Nurse Practitioner Family; Emergency Provider Emergency Medicine; PCP Family Medicine
DX: R07.9 Chest pain, unspecified (principal); F31.9 Bipolar disorder, unspecified; F17.290 Nicotine dependence, other tobacco product, uncomplicated
CPT/HCPCS: 36415; 71045; 80053; 83880; 84484; 84703; 85025; 93005; 96372; 99285; J1885

== ENCOUNTER 2024-03-05 01:20 | Emergency (ER) | payer BC, MEDICAID, SELFPAY ==
[2024-03-05 01:24] VITALS: BP 124/73; PULSE 73; RESP 18; TEMP 36.8; O2SAT 97; BMI 30.9
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
[2024-03-05 02:00] VITALS: BP 124/74; PULSE 71; O2SAT 96
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
[2024-03-05 02:59] VITALS: BP 116/67; PULSE 52; O2SAT 92
== END 2024-03-05 03:01 | disposition home or self-care (01) ==
PROVIDERS: Emergency Provider Emergency Medicine; PCP Family Medicine
DX: S09.93XA Unspecified injury of face, initial encounter (principal); S09.90XA Unspecified injury of head, initial encounter; S49.91XA Unspecified injury of right shoulder and upper arm, initial encounter; Y04.8XXA Assault by other bodily force, initial encounter; F17.290 Nicotine dependence, other tobacco product, uncomplicated
CPT/HCPCS: 70450; 70486; 73030; 99284